=== PATIENT | female | born 1990 | race Two or more races ===

== ENCOUNTER 2025-02-16 02:15 | Inpatient (IN) | payer BC ==
[~2025-02-16] VITALS: Ht 152.4 cm; Wt 107.7 kg
[2025-02-16] VITALS (8 sets, daily range): BP systolic 112–134; BP diastolic 57–80; PULSE 79–90; RESP 16–20; TEMP 97–98.6; O2SAT 96–99
[2025-02-16] MEDS ORDERED: EPIN0.3P3 IM (02:43)
[2025-02-16 02:51] LABS: BASOPHILS % (AUTO) 0.5 % (0-1); EOSINOPHILS # (AUTO) 0.1 X10'3 (0-0.9); EOSINOPHILS % (AUTO) 1.4 % (0-6); HEMATOCRIT 40.5 % (35.0-45.0); HEMOGLOBIN 13.2 g/dl (12.0-16.0); LYMPHOCYTES # (AUTO) 3.4 X10'3 (1.1-4.8); MEAN CORPUSCULAR HEMOGLOBIN 26.7 PG (27.0-31.0); MEAN CORPUSCULAR HGB CONC 32.7 g/dL (33.0-36.5); MEAN CORPUSCULAR VOLUME 81.6 FL (78-98); MEAN PLATELET VOLUME 8.6 FL (7.4-10.4); MONOCYTES # (AUTO) 0.6 X10'3 (0-0.9); NEUTROPHILS # (AUTO) 3.3 X10'3 (1.8-7.7); NEUTROPHILS % (AUTO) 44.1 % (42-75); PLATELET COUNT 245 X10'3 (140-440); RED BLOOD COUNT 4.96 X10'6 (4.20-5.60); RED CELL DISTRIBUTION WIDTH 14.3 % (11.5-14.5); WHITE BLOOD COUNT 7.5 X10'3 (4.5-11.0)
[2025-02-16 03:03] LABS: ALANINE AMINOTRANSFERASE 209 U/L (12-78); ALBUMIN 3.6 G/DL (3.4-5.0); ALKALINE PHOSPHATASE 111 IU/L (46-116); ANION GAP 9 (8-16); ASPARTATE AMINO TRANSFERASE 117 U/L (10-37); BILIRUBIN,TOTAL 0.5 MG/DL (0.1-1.0); BLOOD UREA NITROGEN 9 MG/DL (7-18); BUN/CREATININE RATIO 13.8 (10.0-20.0); CALCIUM 8.2 MG/DL (8.5-10.1); CHLORIDE 105 MMOL/L (99-107); CREATININE 0.65 MG/DL (0.40-0.90); GLUCOSE 105 MG/DL (70-104); LIPASE 44 U/L (16-77); POTASSIUM 3.7 MMOL/L (3.5-5.1); SODIUM 140 MMOL/L (135-145); TOTAL CARBON DIOXIDE 26.2 MMOL/L (24-32); TOTAL PROTEIN 7.3 G/DL (6.4-8.2); eCRCL 87 ML/MIN; eGFR > 90 ML/MIN
--- NOTE | 2025-02-16 04:18 | Physician Documentation ---
History of Present Illness Chief Complaint: Abdominal Pain Stated Complaint: TRANSFER Time Seen by MD: 02:30 Mode of Arrival: Ambulatory HPI Sent from [facility] for higher level of GI care, having been diagnosed with choledocholithiasis with elevated liver enzymes and stones in gallbladder, 9mm CBD. No other sequalae of cholecystitis (normal GBW, normal WBC). Medication Reconciliation Allergies: Uncoded Allergies: ESTEBAN (Allergy, Unknown, 02/16/25) has epi pen rx due to this allergy Scheduled Epinephrine (Epipen 2-Rangel), 1 SYR IM ONCE, (Reported) Review of Systems All Other Systems at this time: Reviewed and Negative Physical Exam Vital Signs: Temperature: 98.1, Source: Oral, Heart Rate: 79, Respiratory Rate: 16, BP: 109/60, Pulse Oximetry: 98, Weight: 107.700 Oxygen Flow Rate: 0 Physical Exam HEENT: PERRL, moist oral mucosa, EOMI Pulmonary: No respiratory distress Cardiac: RRR, no murmur, rub or gallop GI: nondistended, soft, +TTP RUQ with meléndez's sign MSK: no deformity Skin: w/d/i, no rash Neuro: alert, nonfocal Psych: normal affect Progress Results/Orders Reviewed/noted all lab results: Yes Results/Orders Orders - ISAI JULIEN MD Urinalysis, Cult If Indicated (02/16/25 02:21) Hcg, Ur Ql (02/16/25 02:21) Straight Cath For Urine Sample (02/16/25 02:21) Completed Orders - ISAI JULIEN MD Cbc/Diff (02/16/25 02:21) BMP (02/16/25 02:21) Lipase (02/16/25 02:21) CMP (02/16/25 02:21) Vital Signs 02/16/25 02/16/25 02/16/25 02:16 02:45 02:47 Temp 98.0 98.1 Pulse 80 79 Resp 16 16 16 B/P (MAP) 135/71 109/60 (76) Pulse Ox 98 98 O2 Flow Rate 0 0 Laboratory Tests Test 02/16/25 02:42 White Blood Count 7.5 Red Blood Count 4.96 Hemoglobin 13.2 Hematocrit 40.5 Mean Corpuscular Volume 81.6 Mean Corpuscular Hemoglobin 26.7 L Mean Corpuscular Hemoglobin Concent 32.7 L Red Cell Distribution Width 14.3 Platelet Count 245 Mean Platelet Volume 8.6 Neutrophils (%) (Auto) 44.1 Lymphocytes (%) (Auto) 46.0 Monocytes (%) (Auto) 8.0 Eosinophils (%) (Auto) 1.4 Basophils (%) (Auto) 0.5 Neutrophils # (Auto) 3.3 Lymphocytes # (Auto) 3.4 Monocytes # (Auto) 0.6 Eosinophils # (Auto) 0.1 Basophils # (Auto) 0.0 CBC Comment Sodium Level 140 Potassium Level 3.7 Chloride Level 105 Carbon Dioxide Level 26.2 Anion Gap 9 Blood Urea Nitrogen 9 Creatinine 0.65 Estimated GFR/1.73 m2 > 90 BUN/Creatinine Ratio 13.8 Glucose Level 105 H Calcium Level 8.2 L Total Bilirubin 0.5 Aspartate Amino Transf (AST/SGOT) 117 H Alanine Aminotransferase (ALT/SGPT) 209 H Alkaline Phosphatase 111 Total Protein 7.3 Albumin 3.6 Globulin 3.7 Albumin/Globulin Ratio 1.0 L Lipase 44 Chemistry Comments Medical Decision Making Findings 34 year old female with presumed choledocholithiasis vs cholecystisis. Stable, care transferred to hospitalist service for inpatient GI workup. Labs demonstrated only mild transaminitis. Differential Dx:Considerations: Include: Appendicitis, Bowel obstruction, Diverticular disease, Gastroenteritis, Hernia, Pancreatitis, Urinary obstruction, Urinary tract infection Departure Disposition: 09 ADMITTED INPATIENT Admitted to Inpatient Unit: to hospitalist Impression: Primary Impression: Choledocholithiasis Condition: Stable Discharge Instructions: Abdominal Pain (Nonspecific) Referrals: NO PRIMARY CARE PROVIDER (PCP) Education Educated: Patient Educated regarding: diagnosis, treatment, prognosis, need for follow up Signature Scribe Signature: . Attestation: . ISAI JULIEN MD February 16, 2025 04:18
[2025-02-16] MEDS ORDERED: ondansetron/PF 4mg/2ml inj IV PRN (04:45)
[2025-02-16] MEDS ORDERED: morphine 2 MG/ML inj. syringe IV PRN (04:45)
[2025-02-16] MEDS ORDERED: magnesium sulf-water 2g/50mL 50 ML IV PRN (04:45)
[2025-02-16] MEDS ORDERED: magnesium sulf-water 4G/100mL 100 ML IV PRN (04:45)
[2025-02-16] MEDS ORDERED: potassium Cl 40MEQ/1/2NS 520ml 520 ML IV PRN (04:45)
[2025-02-16] MEDS ORDERED: magnesium Cl slow-release 64mg tablet PO PRN (04:45)
[2025-02-16] MEDS ORDERED: acetaminophen 325mg tablet PO PRN (04:45)
[2025-02-16] MEDS ORDERED: potassium Cl 20 mEq SR tablet PO PRN ×2 (04:45)
--- NOTE | 2025-02-16 04:52 | HISTORY AND PHYSICAL-Residence ---
History & Physical Providers to CC Resident Creating Document: CONNIE LOPEZ RES CC: BOBBY GANNON MD ~ History of Present Illness Reason for Admit\Complaint: RUQ PAIN SINCE 1:00 P.M. ON 02/15 History of Present Illness 34-year-old female with history of obesity, gallstones came as a transfer from [facility] for further evaluation of right upper quadrant pain. Patient started having right upper quadrant pain since 1:00 p.m. on 02/15/2025. Describes pain as colicky, intermittent, not radiating, intensity of 10/10 which came down to 6/10 after receiving pain medication. Associated with nausea. Denies any vomitings or fever. At the transferring facility ultrasound abdomen done which showed acute cholelithiasis, positive Knutson sign and dilated CBD. Patient is transferred here for further evaluation with MRCP Allergies: Uncoded Allergies: BEES (Allergy, Unknown, 02/16/25) has epi pen rx due to this allergy Home Medications Home Medications Active Reported Epipen 2-Rangel (Epinephrine HCl) 0.3 Mg/0.3 Ml Auto.injct 1 Syr IM ONCE 1 Days Past Medical History Past Medical History Obesity, stopped mounjaro a month ago as patient had significant weight loss for about a year on mounjaro Bee allergies Past Surgical History Surgical History Comment Tubal ligation Past Social History Social History Comment Nonsmoker, does not drink alcohol, denies illicit drug use, independent for ADLs ROS ROS ROS Constitutional: No fever, dizziness, weakness. no change in appetite/weight HEENT: No blurring of the vision, No sore throat, epistaxis, tinnitus Cardiovascular: No chest pain/discomfort, palpitations, syncope. No pedal edema Respiratory: No sob, cough,, hemoptysis Gastrointestinal: Positive for abdominal pain, nausea. No diarrhea, constipation, melena. Genitourinary: No frquency, urgency, incontinence, nocturia. No dysuria, hematuria Musculoskeletal: No arthralgia, myalgia Endocrine: No fatigue, polydipsia, polyuria. No heat or cold intolerance Neurologic: No headache, vertigo. No weakness, numbness or tingling of extremities Psychiatric: No hallucinations/delusions, no anhedonia, no suicidal ideation\ Hematologic: No bleeding or bruises Reviewed in full. All negative except for pertinent positives in HPI Exam Vitals: Vital Signs Date Time Temp Pulse Resp B/P (MAP) Pulse Ox O2 Delivery O2 Flow Rate FiO2 02/16/25 04:35 77 16 119/68 (85) 98 0 02/16/25 02:47 98.1 General: General: Pleasant adult female, AAO x4, not in apparent distress, obese Head: Normocephalic with an atraumatic Eyes: Pupils- 3mm, reacting to light, conjunctiva- anicteric Nose and throat: No polyps, septum- normal, no mucosal ulcers Neck: Supple, no lymphadenopathy, no carotid bruit Respiratory: No use of accessory muscles of respiration, Bilateral normal vesiscular breath sounds heard. No wheeze, rhochi or creps Cardiac: S1-S2 heard, rythm regular, no gallop/murmur Abdomen: non distended, mild tenderness in the right upper quadrant, mild guarding no organomegaly, bowel sounds- heard Extremities: no clubbing, no pedal edema, no deformities, peripheral pulses- 2+ Skin: warm and dry, no rash, no purpura Neuro: No focal deficit, gross cranial nerve exam- normal Diagnostic Data Last Recorded Lab Results: 02/16/25 0242 02/16/25 0242 Advance Care Planning Advanced Care plannin - 30 Minutes (Code status is discussed with her and she opted for full code) Additional Plan 34 female with history of obesity, gallstones came as a transfer from [facility]. She had right upper quadrant abdominal pain, nausea, for for the past one day. At the transferring facility ultrasound abdomen done showed acute cholelithiasis, positive Knutson's sign and dilated CBD. CBC is normal. Liver enzymes are slightly elevated with normal bilirubin. ALP is normal. AST is 117, ALT 209. Biliary colic/acute cholelithiasis -will obtain CT abdomen to look for any cholecystitis and dilated CBD -follow up on MRCP to look for any dilated CBD/CBD stone -consult surgeon and GI in the a.m. -pain management with morphine and [place] -IV fluids LR at 50 cc/hour -NPO Severe obesity -needs outpatient evaluation for sleep apnea and bariatric surgery versus weight loss medication Code Status: Full code Line/tube: PIV DVT prophylaxis: Lovenox Nutrition: NPO PT: NO Prognosis: Guarded Disposition: Continue care in surgicak floor Connie Lopez MD PGY-2 resident Plan reviewed with bedside team. Patient seen through remote audiovisual assessment through HIPAA compliant setup. All labs, flowsheets, and images reviewed Cumulative nonprocedural care time spent in directed patient care = 30 min Date of Service: February 16, 2025 Billing Provider: BOBBY GANNON MD, HARIVARSHA, [facility] February 16, 2025 04:52 BOBBY GANNON MD February 16, 2025 06:13
[2025-02-16 05:26] LABS: HCG SERUM QL NEGATIVE
[2025-02-16 05:32] LABS: HEMOGLOBIN A1C 5.7 % (4.5-6.2)
[2025-02-16] MEDS: ringers solution, lacted 1,000 ML IV SCH (05:38)
--- NOTE | 2025-02-16 05:55 | RADIOLOGY REPORT ---
Exam: CT CT ABDOMEN PELVIS History: gall stones Comparison Study: None TECHNIQUE: Multidetector CT of the abdomen and pelvis was performed from lung bases to pubic symphysi s. Imaging was performed without IV contrast. Axial, coronal and sagittal multiplanar reformats were obtained from the axial data set by the technologist. Radiation optimization: All CT scans at this facility use at least one of these dose optimization radha hniques: automated exposure control mA and/or kV adjustment per patient size (includes targeted exam s where dose is matched to clinical indication) or iterative reconstruction. Radiation Dose Information: CT Dose: CTDI volume is 35.7 mGy. Dose-length product is 10/10/2003 mGy*cm FINDINGS: Evaluation of solid organs is limited due to lack of intravenous contrast use. Imaged portions of the lung bases appear unremarkable. Liver, spleen, pancreas, adrenal glands, and k idneys appear unremarkable. There is cholelithiasis with mild distention of the gallbladder. Common bile duct estimated 1.0 cm. No evidence of wall thickening or pericholecystic fluid. No evidence of bowel obstruction or focal bowel wall thickening. No free fluid, free air, or adenopa thy. IMPRESSION: 1. Cholelithiasis with prominent common bile duct. Right upper quadrant ultrasound would be of benef it if there is clinical concern for cholecystitis.
--- NOTE | 2025-02-16 07:02 | ELECTROCARDIOGRAPH REPORT ---
[facility] Test Date: 2025-02-16 Test Time: 06:59:39 Pat Name: DARÍO HUFF [facility]: [id number] Room: [place] [id number] B Gender: F Breakfast Host: MANUELA : 1990 Requested By: ELAINA DREW Order Number: [id number] Reading MD: Dr. SOLEDAD Brandon Measurements Intervals [place] Rate: 74 P: 35 OH: 144 QRS: 29 QRSD: 90 T: 33 QT: 412 QTc: 457 Interpretive Statements Normal sinus rhythm Electronically Signed On 02-16-2025 15:06:[address] SOLEDAD Brandon Please click the below link to view image of tracing.
[2025-02-16] MEDS: K and/or MAG REPLACEMENT MC SCH (07:13)
[2025-02-16] MEDS: enoxaparin 40mg/0.4ml syringe SUBCUT SCH (07:14)
[2025-02-16] MEDS: docusate sod 100mg capsule PO SCH (07:14)
--- NOTE | 2025-02-16 07:25 | RADIOLOGY REPORT ---
DI CHEST,SINGLE VIEW, HISTORY: Pre Op COMPARISON: None None TECHNICAL DATA: 1 view of the chest was obtained. FINDINGS: Lines and tubes: None Cardiomediastinal silhouette: normal Pulmonary vasculature: normal Lung expansion: normal Lung airspace: normal Lung interstitium: normal Pleura: normal Pneumothorax: no Bones: Unremarkable Other: no IMPRESSION: No acute intrathoracic abnormality.
[2025-02-16 08:15] LABS: INR 1.1 INR
--- NOTE | 2025-02-16 10:00 | RADIOLOGY REPORT ---
MR MRCP HISTORY: dilated CBD COMPARISON: 02/16/25 PROCEDURE: Multiplanar multisequence MRI images were obtained of the abdomen without intravenous cont rast Additional MIPS were obtained of the biliary system. FINDINGS: Bile ducts: -Intrahepatic ducts: Non-dilated. -Extrahepatic ducts: Non-dilated. -Common bile duct: Non-dilated. 7 mm in diameter. -Filling defects: No filling defects -Stricture: None. Gallbladder: 3 gallstones. Pancreas: Pancreatic duct: No ductal dilatation. Lesions: None. Liver: Signal intensity: Homogenous. Contour: Smooth. Size: Normal. Lesions: No focal liver lesion. ADDITIONAL FINDINGS: Lung base: Normal. Pancreas: Normal. Spleen:Normal. Bowel: Normal. Adrenal glands:Normal. Kidneys and ureters:Normal. Lymph nodes:Normal. Peritoneum:Normal. Vessels: Normal. Abdominal wall: Normal. Bone: No aggressive bone lesions IMPRESSION: Cholelithiasis without evidence for choledocholithiasis..
[2025-02-16 10:50] LABS: BILIRUBIN,URINE NEGATIVE (Neg); CLARITY,URINE SLIGHTLY CLOUDY (Clear); COLOR,URINE YELLOW (Yellow); GLUCOSE, URINE NEGATIVE (Neg); KETONES,URINE NEGATIVE (Neg); LEUKOCYTE ESTERASE ,URINE SMALL (Neg); NITRITES, URINE NEGATIVE (Neg); OCCULT BLOOD,URINE TRACE-INTACT (Neg); PROTEIN,URINE NEGATIVE (Neg); UROBILINOGEN,URINE 0.2 E.U/dL (0.2-1.0)
[2025-02-16 10:51] LABS: URINE HCG NEGATIVE (NEG)
--- NOTE | 2025-02-16 10:53 | RADIOLOGY REPORT ---
INDICATION: RUQ abdomen pain TECHNIQUE: Multiple real-time sonographic images of the abdomen were obtained. COMPARISON: None FINDINGS: Liver is homogenous in echogenicity. The liver measures 15.2 cm. No intrahepatic biliary ductal dilatation is noted. Cholelithiasis with positive Knutson's sign. No pericholecystic fluid or edema. The common duct is dilated and measuring 0.8 cm . The right kidney measures 9.2 cm. No hydronephrosis. The pancreas is not well visualized due to obscuration from bowel gas. The visualized portions of the IVC and aorta are grossly unremarkable. IMPRESSION: 1. Cholelithiasis with positive Knutson's sign suspicious for cholecystitis. Consider HIDA scan 2. Dilated common bile duct measuring up to 0.8 cm. Recommend MRCP for further evaluation
[2025-02-16 10:56] LABS: UA COLLECTION TYPE CLN CATCH MIDSTREAM
[2025-02-16 11:05] LABS: BACTERIA,URINE 2+ /HPF (Neg); MUCUS STRANDS NONE SEEN /LPF (Neg); RBC,URINE 0-2 /HPF (0-2); SQUAMOUS EPITHELIAL CELL,UR MODERATE /LPF (FEW); TRANSITIONAL EPI CELLS,URINE FEW /HPF
--- NOTE | 2025-02-16 19:18 | PROGRESS NOTE ---
Progress Note ID Providers to CC ~ Progress Note Progress Note: pt seen-ascencion in am ELAINA DREW MD February 16, 2025 19:18
[2025-02-17] VITALS (23 sets, daily range): BP systolic 105–131; BP diastolic 60–81; PULSE 58–84; RESP 10–21; TEMP 97.4–98; O2SAT 91–100
[2025-02-17 05:57] LABS: BASOPHILS % (AUTO) 0.5 % (0-1); EOSINOPHILS # (AUTO) 0.1 X10'3 (0-0.9); EOSINOPHILS % (AUTO) 1.6 % (0-6); HEMATOCRIT 41.8 % (35.0-45.0); LYMPHOCYTES # (AUTO) 3.7 X10'3 (1.1-4.8); LYMPHOCYTES % (AUTO) 42.4 % (21-51); MEAN CORPUSCULAR HEMOGLOBIN 27.3 PG (27.0-31.0); MEAN CORPUSCULAR HGB CONC 33.5 g/dL (33.0-36.5); MEAN CORPUSCULAR VOLUME 81.4 FL (78-98); MEAN PLATELET VOLUME 8.7 FL (7.4-10.4); MONOCYTES # (AUTO) 0.6 X10'3 (0-0.9); MONOCYTES % (AUTO) 7.1 % (2-12); NEUTROPHILS # (AUTO) 4.2 X10'3 (1.8-7.7); NEUTROPHILS % (AUTO) 48.4 % (42-75); PLATELET COUNT 252 X10'3 (140-440); RED BLOOD COUNT 5.13 X10'6 (4.20-5.60); RED CELL DISTRIBUTION WIDTH 14.3 % (11.5-14.5); WHITE BLOOD COUNT 8.6 X10'3 (4.5-11.0)
[2025-02-17 06:47] LABS: ALANINE AMINOTRANSFERASE 177 U/L (12-78); ALBUMIN 3.7 G/DL (3.4-5.0); ALKALINE PHOSPHATASE 93 IU/L (46-116); ANION GAP 9 (8-16); ASPARTATE AMINO TRANSFERASE 51 U/L (10-37); BILIRUBIN,TOTAL 0.5 MG/DL (0.1-1.0); BLOOD UREA NITROGEN 7 MG/DL (7-18); BUN/CREATININE RATIO 9.5 (10.0-20.0); CALCIUM 8.4 MG/DL (8.5-10.1); CHLORIDE 106 MMOL/L (99-107); CHOL/HDL RATIO 5.4 (0.00-4.99); CHOLESTEROL 207 MG/DL (0-200); CREATININE 0.74 MG/DL (0.40-0.90); GLUCOSE 113 MG/DL (70-104); HDL CHOLESTEROL 38 MG/DL (35-60); LDL CHOLESTEROL 138 MG/DL (50-100); POTASSIUM 4.1 MMOL/L (3.5-5.1); SODIUM 141 MMOL/L (135-145); TOTAL CARBON DIOXIDE 25.7 MMOL/L (24-32); TOTAL PROTEIN 7.4 G/DL (6.4-8.2); eCRCL 76 ML/MIN; eGFR 89 ML/MIN
[2025-02-17 07:08] LABS: TRIGLYCERIDES 189 MG/DL (20-135)
[2025-02-17] MEDS ORDERED: proCHLORperazine 10 MG/2 ml inj IV PRN (08:35)
[2025-02-17] MEDS: ringers solution, lacted 1,000 ML IV SCH (08:35)
[2025-02-17] MEDS ORDERED: enalaprilat 1.25mg/ml 2ml vial IV PRN (08:35)
[2025-02-17] MEDS ORDERED: ondansetron/PF 4mg/2ml inj IV PRN ×2 (08:35→12:20)
[2025-02-17] MEDS ORDERED: labetalol 20mg/4ml (5mg/ml) syringe IV PRN (08:35)
[2025-02-17] MEDS ORDERED: meperidine/PF 25mg/ml syringe IV PRN ×3 (08:35)
--- NOTE | 2025-02-17 08:42 | PROGRESS NOTE ---
Progress Note ID Providers to CC ~ Progress Note Progress Note: DISCUSSED PROCEDURE INCLUDING RISKS/BENEFITS/ALTERNATIVES ELAINA DREW MD February 17, 2025 08:42
[2025-02-17] MEDS ORDERED: midazolam 1 mg/ML 2ml injection ONE (09:44)
[2025-02-17] MEDS ORDERED: fentaNYL /PF 50mcg/ml 5ml ampule ONE (09:45)
[2025-02-17] MEDS ORDERED: BUPIVAcaine 2.5mg/ml inj 50ml vial (contains preservative) ONE (10:00)
[2025-02-17] MEDS ORDERED: fentaNYL/PF 50MCG/1 ML 2ML syringe IV PRN (10:05)
[2025-02-17] MEDS ORDERED: propofol inj 20 ML IV ONE (10:26)
[2025-02-17] MEDS ORDERED: rocuronium 10mg/ml inj IV ONE (10:27)
[2025-02-17] MEDS ORDERED: ondansetron/PF 4mg/2ml inj ONE (10:38)
[2025-02-17] MEDS ORDERED: ceFOXitin 1000 MG inj ONE ×2 (10:48→10:49)
[2025-02-17] MEDS ORDERED: acetaminophen 1,000mg/100ml IV 100 ML IV ONE ×2 (10:49→11:36)
[2025-02-17] MEDS: morphine 4 MG/ML inj SYRINge IV PRN (12:00)
--- NOTE | 2025-02-17 12:18 | OPERATIVE REPORT ---
Operative Report Providers to CC ~ Date of Procedure: February 17, 2025 Pre-Operative Diagnosis: cholelithiasis Post-Operative Diagnosis SAME as PRE-Op Procedure Performed kirsten [place] Surgeon: otilia Forensic Manager none Anesthesiologist: Venu Seth Type of Anesthesia: General Findings: distended gb Estimated Blood Loss: min Specimen Removed: ELAINA Swartz MD February 17, 2025 12:18
[2025-02-17] MEDS ORDERED: HYDROcodone/acetaminophen 5mg/325mg tablet PO PRN (12:20)
[2025-02-17] MEDS ORDERED: naloxone 0.4 mg/ml inj IV PRN (12:20)
[2025-02-17] MEDS ORDERED: HYDROmorphone inj. 0.5 MG/0.5 ML DISP.SYRIN IV PRN (12:25)
[2025-02-17] MEDS: ketorolac trometh 30MG/ML vial 30 MG/ML VIAL IV ONE (12:25)
[2025-02-17] MEDS ORDERED: meperidine/PF 100mg/ml syringe IV PRN ×3 (12:35→12:40)
[2025-02-17] MEDS: morphine 2 MG/ML inj. syringe IV PRN ×2 (12:45)
--- NOTE | 2025-02-17 13:58 | OPERATIVE REPORT ---
DATE OF SURGERY: 02/17/2025 DICTATING PHYSICIAN: Lake Leone MD PREOPERATIVE DIAGNOSIS: Cholelithiasis. PREOPERATIVE DIAGNOSIS: Cholelithiasis. PROCEDURE PERFORMED: Robotic cholecystectomy. SURGEON: Lake Leone MD. YARD GOODS SALESPERSON: None. ANESTHESIA: General/Dr. Seth. DRAINS: Dariel drain x 1. INDICATIONS FOR OPERATION: A 34-year-old female with abdominal pain, being transferred from [facility], found to have symptomatic cholecystitis, taken to surgery for robotic cholecystectomy. INTRAOPERATIVE FINDINGS: Distended gallbladder. DESCRIPTION OF PROCEDURE: The patient was placed supine on the operating table. After induction of general anesthesia and placement of endotracheal tube, the abdomen was prepped and draped. A subumbilical incision was then made and Aline port placed using open technique and pneumoperitoneum was begun by insufflation of CO2. Additional ports were placed, 1 in the left lower quadrant and 2 on the right. Robot was then brought to the field. Camera port docked. Camera placed, camera targeted. Additional ports were then docked and instruments placed. Abdomen was then explored. Gallbladder fundus was grasped and retracted cephalad. Cystic duct identified, isolated, ligated, clipped and divided the cystic artery. The gallbladder was mobilized off the gallbladder fossa using electrocautery. When hemostasis was found to be adequate, robotic instruments were removed from the field, robot was undocked field. Gallbladder was placed in Endobag using laparoscope. Abdomen was copiously irrigated with large amount of antibiotic-containing solution. A #19 Dariel drain was placed through the port incision directed to gallbladder fossa. Ports were removed under laparoscopic vision with no active bleeding. Final port and camera withdrawn as was the Endobag using laparoscope in the gallbladder. Wounds were closed in layers. Skin was closed with subcuticular stitch. Dressing applied. The patient was transferred to recovery in stable condition. Lake Leone MD TID: [id number] RECEIPT: [id number] KB/VUN
[2025-02-17] MEDS: HYDROcodone/acetaminophen 10/325mg tab PO PRN (15:04)
--- NOTE | 2025-02-17 16:29 | PROGRESS NOTE- Residence ---
Progress Note - Resident Providers to CC Resident Creating Document: RUI ALFARO RES ~ Antibiotic Timeout Antibiotic Ordered?: Yes Subjective Patient was seen at the bedside this morning right after the surgery robotic laparoscopic cholecystectomy by Dr. Cortez with no complications Objective Vital Signs Date Time Temp Pulse Resp B/P (MAP) Pulse Ox O2 Delivery O2 Flow Rate FiO2 02/17/25 15:04 16 02/17/25 13:30 62 125/76 (92) 94 Room Air 02/17/25 12:30 6.0 02/17/25 11:53 98.2 Result Diagram: 02/17/25 0531 02/17/25 0531 Vitals were stable at the moment with MT 62/minute, RR 70/minute, BP 125/76 mm Hg, pulse oximetry 94% on room air. On examination, General: Well alert, well oriented, not confused, not agitated, not in acute distress, well cooperated during the physical. HEENT: Conjunctive are pink, sclerae clear, no icterus, pupil is equal in both sides, reactive to light, no ear discharge, no pharyngeal erythema or an edema, mouth and lips are moist. Neck: Supple, no JVD, no lymphadenopathy and thyromegaly. Lungs:Equal air entry on both lungs, no additional sounds Heart: S1-S2 regular sinus rhythm and, regular rate, no gallops, no rubs, no murmurs Abdomen: No visible peristalsis, Bowel sounds absent on auscultation at the right after immediate post op, soft, slight tender at the port entry sites, no guarding, no rigidity, ports entry sites were secured with the intact bandages. Extremities: No obvious deformities, no pitting edema bilaterally, capillary refill intact, able to wiggle toes both sides, peripheral pulsations are intact on both sides POLO COACH: No focal neurological deficits, no motor and sensory weakness in all 4 extremities, could move all 4 extremities Musculoskeletal: No joint swelling, deformities, inflammations, and no scoliosis and back tenderness Skin: No active skin lesions and rashes Coagulation Studies Laboratory Tests Test 02/16/25 07:07 Prothrombin Time 11.0 SECONDS (9.0-12.0) INR International Normalized Ratio 1.1 INR Coagulation Comments Assessment Assessment A 34-year-old female with a past medical history of class three obesity BMI 46.4, history of gallstones who was transferred from [facility] for further evolution of RHC pain found to have acute cholelithiasis and dilated CBD for which MRCP was done resulting into 7 mm diameter CBD, three gallstones stated with cholelithiasis without evidence for choledocholithiasis. She underwent laparoscopic robotic cholecystectomy by Dr. Worthington at on 02/17/2025 with no complications. Plan Plan # acute abdomen 2/2 acute cholecystitis from cholelithiasis # CBD dilation, 7mm with no CBD stones 02/17/2025:-MRCP was done resulting into 7 mm diameter CBD, three gallstones stated with cholelithiasis without evidence for choledocholithiasis. on 02/16/25 -Dr Cortez performed the laparoscopic cholecystectomy this morning with the having any complications -please follow the instructions and recommendation from the surgical team including pain control and upgrading the diet -continue IV morphine/Dilaudid as needed -monitor bowel movement and abdominal distention and pain -continue IV antibiotics cefoxitin D1 as per surgical management plan. # Class 3 Obesity, BMI 46.4 # hyperglycemia, HGB A1c 5.7 # Mixed hyperlipidemia 02/17/2025: Encourage billing up for weight losing plan, recommend to follow up with the PCP including barrier to surgery versus medication and advised for outpatient sleep study for the possible sleep apnea. -continue monitoring blood glucose level, ranging around 110s, HGB A1c 5.7 with normal hemoglobin -LDL 138, triglycerides 189, total cholesterol 207, need strict weight losing plan and modify active lifestyle with heart healthy diet and moderate active exercises, not necessary to initiate statin medication since she is below 40 and plan to recheck lipid profile after six months of modified active lifestyle-to consider statin medication if there is no changes. # asymptomatic pyuria 02/17/2025: Patient denies any signs and symptoms of LUTI -urine culture with prelim report showed mixed mona isolated -currently on cefoxitin which should cover it CODE STATUS: Full code DVT prophylaxis: Sc Lovenox 40 mg daily Analgesia/sedation: Morphine/Dilaudid as needed Lines/tubes: Peripheral IV GI prophylaxis: None Nutrition: As per surgical team upgrading plan Prognosis: Guarded Disposition: Continue medical management, bowel sounds and bowel movement monitoring, F/up W/pending urine culture, PT eval and DC plan. Resident MD attestation: Patient was seen, examined and discussed with attending MD, Dr. Lily ALFARO MD Internal Medicine Resident, PGY2 [facility] Date of Service: February 17, 2025 Billing Provider: MARITZA NEWSOME MD Common Visit Codes: [id number] INP/OBS CARE(HIGH) URI ALFARO, RES February 17, 2025 16:29 MARITZA NEWSOME MD February 17, 2025 18:14
[2025-02-17] MEDS: ceFOXitin 1 GM/D5W 50mL IVPB 50 ML IV SCH (17:00)
[2025-02-17] MEDS: HYDROcodone/acetaminophen 5mg/325mg tablet PO PRN (23:45)
--- NOTE | 2025-02-18 00:52 | CONSULTATION ---
DATE OF CONSULTATION: 02/17/2025 DICTATING PHYSICIAN: Lake Leone MD REASON FOR CONSULTATION: Evaluation of abdominal pain. HISTORY OF PRESENT ILLNESS: The patient is a 34-year-old female complaints of abdominal pain and she was transferred to [facility]. Workup revealed cholelithiasis. Surgical evaluation is now requested. On further questioning, minimal pain at the present time. Has had complaints of some nausea. PAST MEDICAL HISTORY: Significant for obesity. PAST SURGICAL HISTORY: Notable for tubal ligation. HOME MEDICATIONS: Include EpiPen as needed. ALLERGIES: No medication allergies. SOCIAL HISTORY: No tobacco or alcohol use. Uses . PHYSICAL EXAMINATION: GENERAL: Well-nourished female, in minimal distress. VITAL SIGNS: Unremarkable. HEART: Regular rate and rhythm. LUNGS: Clear to auscultation. ABDOMEN: Some mild tenderness at this time. EXTREMITIES: Unremarkable. NEUROLOGIC: Nonfocal. LABORATORY DATA: WBC of 7.5, hematocrit of 40, platelet count 245. Chemistries include AST and ALT of 117 and 209, alkaline phosphatase 111. IMAGING STUDIES: MRCP confirms the presence of cholelithiasis with no choledocholithiasis. IMPRESSION: * Symptomatic cholelithiasis. * Obesity. RECOMMENDATIONS: Robotic cholecystectomy. Lake Leone MD TID: [id number] RECEIPT: [id number] SAMSON/CASPER/LILO
[2025-02-18 02:00] VITALS: BP 103/55; PULSE 64; RESP 18; TEMP 98; O2SAT 96
[2025-02-18 06:32] VITALS: BP 106/63; PULSE 83; RESP 12; TEMP 98.7; O2SAT 95
[2025-02-18 06:45] LABS: BASOPHILS % (AUTO) 0.2 % (0-1); EOSINOPHILS % (AUTO) 0 % (0-6); HEMATOCRIT 38.2 % (35.0-45.0); HEMOGLOBIN 12.6 g/dl (12.0-16.0); LYMPHOCYTES # (AUTO) 2.8 X10'3 (1.1-4.8); LYMPHOCYTES % (AUTO) 24.1 % (21-51); MEAN CORPUSCULAR HEMOGLOBIN 26.8 PG (27.0-31.0); MEAN CORPUSCULAR VOLUME 81.2 FL (78-98); MEAN PLATELET VOLUME 8.5 FL (7.4-10.4); MONOCYTES % (AUTO) 8.2 % (2-12); NEUTROPHILS # (AUTO) 7.9 X10'3 (1.8-7.7); NEUTROPHILS % (AUTO) 67.5 % (42-75); PLATELET COUNT 254 X10'3 (140-440); RED CELL DISTRIBUTION WIDTH 14.2 % (11.5-14.5); WHITE BLOOD COUNT 11.7 X10'3 (4.5-11.0)
[2025-02-18 07:18] LABS: ALANINE AMINOTRANSFERASE 130 U/L (12-78); ALBUMIN/GLOBULIN RATIO 0.9 (1.1-1.5); ALKALINE PHOSPHATASE 78 IU/L (46-116); ANION GAP 9 (8-16); ASPARTATE AMINO TRANSFERASE 33 U/L (10-37); BILIRUBIN,TOTAL 0.4 MG/DL (0.1-1.0); BLOOD UREA NITROGEN 5 MG/DL (7-18); BUN/CREATININE RATIO 9.8 (10.0-20.0); CALCIUM 8.3 MG/DL (8.5-10.1); CHLORIDE 107 MMOL/L (99-107); CREATININE 0.51 MG/DL (0.40-0.90); GLUCOSE 106 MG/DL (70-104); POTASSIUM 3.8 MMOL/L (3.5-5.1); SODIUM 140 MMOL/L (135-145); TOTAL CARBON DIOXIDE 24.2 MMOL/L (24-32); TOTAL PROTEIN 6.3 G/DL (6.4-8.2); eCRCL 111 ML/MIN; eGFR > 90 ML/MIN
[2025-02-18] MEDS ORDERED: EPINEPHRINE IM SCH (07:30)
[2025-02-18 08:00] VITALS: RESP 16
[2025-02-18 10:00] VITALS: BP 106/66; PULSE 74; RESP 20; TEMP 98.2; O2SAT 93
--- NOTE | 2025-02-18 14:21 | PROGRESS NOTE- Residence ---
Progress Note - Resident Providers to CC Resident Creating Document: URI ALFARO RES ~ Antibiotic Timeout Antibiotic Ordered?: No Subjective Patient was seen at the bedside this morning and reported that she already has been passing the gas but no BM yet. Her Pain was 1/10. The total drainage from MERVIN drain within 24 hrs was [address] Cortez planned to take it out today which might be done by today oncall Dr Lee including the advancing diet. POD 1 Objective Vital Signs Date Time Temp Pulse Resp B/P (MAP) Pulse Ox O2 Delivery O2 Flow Rate FiO2 02/18/25 06:32 98.7 83 12 106/63 (77) 95 Room Air 02/17/25 20:00 6.0 Result Diagram: 02/18/2562402/18/25624 Vitals were stable at the moment. On examination, General: Well alert, well oriented, not confused, not agitated, not in acute distress, well cooperated during the physical. HEENT: Conjunctive are pink, sclerae clear, no icterus, pupil is equal in both sides, reactive to light, no ear discharge, no pharyngeal erythema or an edema, mouth and lips are moist. Neck: Supple, no JVD, no lymphadenopathy and thyromegaly. Lungs:Equal air entry on both lungs, no additional sounds Heart: S1-S2 regular sinus rhythm and, regular rate, no gallops, no rubs, no murmurs Abdomen: No visible peristalsis, Bowel sounds sluggish on auscultation on post op, soft, slight tender at the port entry sites, no guarding, no rigidity, ports entry sites were secured with the intact bandages and MERVIN drain draining for around 20 cc this morning. 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, no motor and sensory weakness in all 4 extremities, could move all 4 extremities Musculoskeletal: No joint swelling, deformities, inflammations, and no scoliosis and back tenderness Skin: No active skin lesions and rashes Coagulation Studies Laboratory Tests Test 02/16/25 07:07 Prothrombin Time 11.0 SECONDS (9.0-12.0) INR International Normalized Ratio 1.1 INR Coagulation Comments Assessment Assessment A 34-year-old female with a past medical history of class three obesity BMI 46.4, history of gallstones who was transferred from [facility] for further evolution of C pain found to have acute cholelithiasis and dilated CBD for which MRCP was done resulting into 7 mm diameter CBD, three gallstones stated with cholelithiasis without evidence for choledocholithiasis. She underwent laparoscopic robotic cholecystectomy by Dr. Worthington at on 02/17/2025 with no complications. Plan Plan # acute abdomen 2/2 acute cholecystitis from cholelithiasis # CBD dilation, 7mm with no CBD stones 02/18/2025: POD 1, without having any complications -passing bowel gas, no bowel movement yet, pain is well-controlled -encourage movement, deep breathing and try not to hold urination to prevent possible postop pneumonia and atelectasis, DVT, UTI and wound dehiscence and infection. -antibiotic was downgraded. -please follow the further instructions from surgical team. 02/17/2025:-MRCP was done resulting into 7 mm diameter CBD, three gallstones stated with cholelithiasis without evidence for choledocholithiasis. on 02/16/25 -Dr Cortez performed the laparoscopic cholecystectomy this morning with the having any complications -please follow the instructions and recommendation from the surgical team including pain control and upgrading the diet -continue IV morphine/Dilaudid as needed -monitor bowel movement and abdominal distention and pain -continue IV antibiotics cefoxitin D1 as per surgical management plan. # Class 3 Obesity, BMI 46.4 # hyperglycemia, HGB A1c 5.7 # Mixed hyperlipidemia 02/18/2025: Random blood Glucose is ranging around 110s -stay on NPO, follow the surgical team instructions for advancing diet 02/17/2025: Encourage billing up for weight losing plan, recommend to follow up with the PCP including barrier to surgery versus medication and advised for outpatient sleep study for the possible sleep apnea. -continue monitoring blood glucose level, ranging around 110s, HGB A1c 5.7 with normal hemoglobin -LDL 138, triglycerides 189, total cholesterol 207, need strict weight losing plan and modify active lifestyle with heart healthy diet and moderate active exercises, not necessary to initiate statin medication since she is below 40 and plan to recheck lipid profile after six months of modified active lifestyle-to consider statin medication if there is no changes. # asymptomatic pyuria 02/18/2025: Patient does not complain about any active L UTI signs and symptoms at the moment -final urine culture and sensitivity show mixed mona was isolated 02/17/2025: Patient denies any signs and symptoms of LUTI -urine culture with prelim report showed mixed mona isolated -currently on cefoxitin which should cover it CODE STATUS: Full code DVT prophylaxis: Sc Lovenox 40 mg daily Analgesia/sedation: Morphine/Dilaudid as needed Lines/tubes: Peripheral IV GI prophylaxis: None Nutrition: As per surgical team upgrading plan Prognosis: Guarded Disposition: Continue medical management and follow up with surgical team, bowel sounds and bowel movement monitoring, PT eval and DC plan. Resident MD attestation: Patient was seen, examined and discussed with attending MD, Dr. Lily ALFARO MD Internal Medicine Resident, PGY2 [facility] Date of Service: February 18, 2025 Billing Provider: MARITZA NEWSOME MD Common Visit Codes: [id number] INP/OBS CARE(HIGH) URI ALFARO RES February 18, 2025 14:21 MARITZA NEWSMOE MD February 18, 2025 17:42
[2025-02-18 18:30] VITALS: BP 118/62; PULSE 87; RESP 18; TEMP 97.7; O2SAT 94
== END 2025-02-18 19:43 | disposition home or self-care (01) | DRG 418 ==
LOC: ER 02:16 → ED HOLD 04:46 → SUR 3N 06:38 → PACU 02-17 09:35 → SUR 3N 02-17 13:59
PROVIDERS: ADMIT Internal Medicine Critical Care Medicine; ATTEND Internal Medicine
PROC: 8E0W4CZ Robotic Assisted Procedure of Trunk Region, Percutaneous Endoscopic Approach (ICD-10-PCS; 2025-02-17)
PROC: 0FT44ZZ Resection of Gallbladder, Percutaneous Endoscopic Approach (ICD-10-PCS; principal; 2025-02-17 10:17)
DX: K80.00 Calculus of gallbladder with acute cholecystitis without obstruction (principal); Z68.42 Body mass index [BMI] 45.0-49.9, adult; K82.8 Other specified diseases of gallbladder; E66.813 Obesity, class 3; R73.9 Hyperglycemia, unspecified; E78.2 Mixed hyperlipidemia; Z91.030 Bee allergy status; Z88.8 Allergy status to other drugs, medicaments and biological substances; Z98.51 Tubal ligation status; Z79.899 Other long term (current) drug therapy
CPT/HCPCS: 99285; Z7506; Z7508; 36415; 71045; 74176; 74181; 74182; 76700; 80053; 80061; 81001; 81025; 82948; 83036; 83690; 84703; 85025; 85610; 87081; 87088; 93005; A4215; A4615; A4618; A6449; A7000; G0378; J0131; J0694; J1650; J1885; J2250; J2270; J2405; J2704; J3010; J3490; J7120